=== PATIENT | male | born 1990 | race African-American/Black ===

== ENCOUNTER 2016-09-26 05:31 | Emergency (ER) | payer BC ==
[~2016-09-26 05:31] MED LIST: AMOXICILLIN500 M1 PO; ANUSOL-HC CREAM30 G1 EXT; ATARAX PO; COLACE PO; ERYTHROMYC3.5 GM OPT OD; FLEXERIL PO; GRISEOFULV125 MG/5 M PO; IBUPROFEN800 MG PO; KETOPROFEN PO; MEDROL DOSEPAK4 MG DOB; MEDROL4 MG/DOSE- PO; ULTRAM PO
== END 2016-09-26 05:35 | disposition home or self-care (01) ==
LOC: CED 05:31
DX: L03.811 Cellulitis of head [any part, except face] (principal)
CPT/HCPCS: 99282

== ENCOUNTER 2017-02-05 22:26 | Emergency (ER) | payer BC ==
[~2017-02-05] VITALS: Ht 177.8 cm; Wt 65.8 kg
== END 2017-02-06 00:38 | disposition home or self-care (01) ==
LOC: CED 22:26
DX: L30.9 Dermatitis, unspecified (principal); Z88.8 Allergy status to other drugs, medicaments and biological substances; Z88.2 Allergy status to sulfonamides
CPT/HCPCS: 99283